=== PATIENT | male | born 1945 | race Caucasian/White ===

== ENCOUNTER → 2019-07-31 | Outpatient (CLI) | payer MEDICARE, BC ==
--- NOTE | 2019-07-31 10:23 | RADIOLOGY REPORT (SQ) ---
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 TECHNIQUE: CT scan of the chest performed using helical scanning technique with dynamic intravenous contrast injection. Images reviewed with lung, soft tissue and bone windows. Reconstructed coronal and sagittal MPR and MIP images reviewed. All images stored on PACS. All CT scanners at this facility use dose modulation, iterative reconstruction, and/or weight based d osing when appropriate to reduce radiation dose to as low as reasonably achievable (ALARA). [facility]: Dose Right [facility]: CareDose [facility]: Dose Right [facility]: Teradose 4D [facility]: [employer] CONTRAST TYPE AND DOSE: See abdomen RENAL FUNCTION: Creatinine 0.85 RADIATION DOSE: CT Rad equipment meets quality standard of care and radiation dose reduction techniq ues were employed. CTDIvol: 12.2 - 16.5 mGy. DLP: 1891 mGy-cm. . LIMITATIONS: None. FINDINGS: LUNGS AND PLEURA: No opacities, nodules, masses. No pneumothorax. No effusions. HILAR AND MEDIASTINAL STRUCTURES: No identified masses or abnormal nodes. HEART AND VASCULAR STRUCTURES: No aneurysm. No dissection. No central pulmonary embolus. Normal he art size. No pericardial effusion. Scattered coronary atherosclerosis. HARDWARE: None in the chest. UPPER ABDOMEN: See separate report of the CT of the abdomen. THYROID AND OTHER SOFT TISSUES: No masses. No adenopathy. BONES: No acute bony abnormality. No discrete lytic or blastic osseous lesions. OTHER: No other significant finding. IMPRESSION: No evidence of metastatic disease within the chest. No evidence of acute intrathoracic process. TECHNICAL DOCUMENTATION: JOB ID: [id number] Quality ID # [id number]: Final reports with documentation of one or more dose reduction techniques (e.g., Au tomated exposure control, adjustment of the mA and/or kV according to patient size, use of iterative reconstruction technique) 2010 [employer]- All Rights Reserved Reading location - IP/workstation name: [email or web address]
--- NOTE | 2019-07-31 10:33 | RADIOLOGY REPORT (SQ) ---
EXAM DESCRIPTION: CT ABD/PELVIS WITH IV ONLY COMPLETED DATE/TIME: 07/31/2019 9:52 am REASON FOR STUDY: PROSTATE CA (C61) C61 MALIGNANT NEOPLASM OF PROSTATE COMPARISON: None. TECHNIQUE: CT scan of the abdomen and pelvis performed using helical scanning technique with dynamic intravenous contrast injection. No oral contrast. Images reviewed with lung, soft tissue, and bone windows. Reconstructed coronal and sagittal MPR images reviewed. Delayed images for evaluation of the urinary system also acquired. All images stored on PACS. All CT scanners at this facility use dose modulation, iterative reconstruction, and/or weight based d osing when appropriate to reduce radiation dose to as low as reasonably achievable (ALARA). [facility]: Dose Right [facility]: CareDose [facility]: Dose Right [facility]: Teradose 4D [facility]: [employer] CONTRAST TYPE AND DOSE: contrast/concentration: Isovue 350.00 mg/ml; Total Contrast Delivered: 100.0 ml; Total Saline Delivered: 54.2 ml RENAL FUNCTION: Creatinine 0.85 RADIATION DOSE: . LIMITATIONS: None. FINDINGS: LOWER CHEST: No significant findings. No nodules or infiltrates. LIVER: Hepatic steatosis. Ill-defined area of increased attenuation within the peripheral right hepa tic lobe favored to represent area of focal fatty sparing or transient hepatic attenuation difference . No discrete hepatic lesions. No intrahepatic ductal dilation. SPLEEN: Normal size. No focal lesions. PANCREAS: No masses. No significant calcifications. No adjacent inflammation or peripancreatic fluid collections. Pancreatic duct not dilated. GALLBLADDER: No identified stones by CT criteria. No inflammatory changes to suggest cholecystitis. ADRENAL GLANDS: No significant masses or asymmetry. RIGHT KIDNEY AND URETER: No solid masses. 1.2 cm cyst. No significant calcifications. No hydrone phrosis or hydroureter. LEFT KIDNEY AND URETER: No solid masses. No significant calcifications. No hydronephrosis or hydr oureter. AORTA AND VESSELS: No aneurysm. No dissection. Renal arteries, SMA, celiac without stenosis. RETROPERITONEUM: No retroperitoneal adenopathy, hemorrhage or masses. BOWEL AND PERITONEAL CAVITY: No focal bowel wall thickening. No evidence of intestinal obstruction. Scattered colonic diverticula. Nonspecific mild mesenteric stranding within the left upper mid abdo men. APPENDIX: Not clearly visualized. PELVIS: Decompressed urinary bladder. Status post prostatectomy. No lymphadenopathy. No pelvic gina e fluid. ABDOMINAL WALL: No masses. No hernias. BONES: 12 mm sclerotic focus within the right ilium. Additional asymmetric sclerosis at the pubic sy mphysis, left greater than right. No other additional lytic or blastic osseous lesions. Grade 1 ant erolisthesis of L3 on L4 with associated bilateral pars defects. . Lower lumbar spondylosis and fac et arthropathy. OTHER: No other significant finding. IMPRESSION: 1. 12 mm sclerotic focus within the right ilium possibly bone island versus metastatic deposit. Additional asymmetric sclerosis at the pubic symphysis, likely degenerative. Recommend cor relation with same-day bone scan. No additional sclerotic lesions identified. 2. Hepatic steatosis with ill-defined area of increased density within the peripheral right hepatic lobe favored to represent focal fatty sparing or transient hepatic attenuation difference. No additi onal evidence of intra-abdominal/pelvic metastatic disease. TECHNICAL DOCUMENTATION: JOB ID: [id number] Quality ID # 436: Final reports with documentation of one or more dose reduction techniques (e.g., Au tomated exposure control, adjustment of the mA and/or kV according to patient size, use of iterative reconstruction technique) 2010 [employer]- All Rights Reserved Reading location - IP/workstation name: [email or web address]
--- NOTE | 2019-07-31 14:07 | RADIOLOGY REPORT (SQ) ---
EXAM DESCRIPTION: NM WHOLE BODY BONE SCAN COMPLETED DATE/TIME: 07/31/2019 1:50 pm REASON FOR STUDY: PROSTATE CA (C61 C61 MALIGNANT NEOPLASM OF PROSTATE COMPARISON: Same day CT RADIONUCLIDE AND DOSE: 21.5 millicuries Tc99m MDP. The route of agent administration: Intravenous. ADDITIONAL DRUGS AND DOSES: None. TECHNIQUE: Routine delayed images at 3 hour post radionuclide injection acquired of the bony skeleto n including anterior and posterior whole-body projections and additional focused images as needed. LIMITATIONS: None. FINDINGS: BONES: Areas of uptake at the knees and ankles most compatible with degenerative change. Otherwise normal visualization without areas of photopenia or increased bony uptake of radiopharmaceu tical. No areas of increased uptake to correspond to the sclerotic CT findings. KIDNEYS: Symmetric excretion without obstruction. OTHER: No other significant finding. IMPRESSION: No areas of abnormal uptake to suggest metastatic disease. COMMENT: Quality measure 147: Current bone scan is compared with any available plain radiographs, p rior bone scans, and CT/MRI. TECHNICAL DOCUMENTATION: JOB ID: [id number] [employer]- All Rights Reserved Reading location - IP/workstation name: [email or web address]
== END ==
LOC: RAD 08:59
PROVIDERS: ATTEND Internal Medicine
DX: C61 Malignant neoplasm of prostate (principal)
CPT/HCPCS: 78306; 71260; 74177; A9561; Q9969

== ENCOUNTER 2019-08-22 11:10 | Day surgery (SDC) | payer MEDICARE, BC ==
[~2019-08-22 11:10] MED LIST: CEFAZOLIN SODIUM 1 GM in DEXTROSE 5%-WATER 50 ML IV SCH; DEXTROSE 5%-LACTATED RINGERS 1,000 ML IV PRN
[2019-08-22 12:05] VITALS: BP 138/89
[2019-08-22 12:47] LABS: HEMATOCRIT 41.7 % (37.9-51.0); HEMOGLOBIN 14.6 g/dL (13.5-17.0); MEAN CORPUSCULAR HEMOGLOBIN 32.4 pg (27.0-33.4); MEAN CORPUSCULAR HGB CONC 34.9 g/dL (32.0-36.0); MEAN CORPUSCULAR VOLUME 93 fl (80-97); PLATELET COUNT 215 10^3/uL (150-450); RED CELL DISTRIBUTION WIDTH 13.3 % (11.5-14.0); WHITE BLOOD COUNT 6.5 10^3/uL (4.0-10.5)
--- NOTE | 2019-08-22 17:42 | EKG REPORT ---
SEVERITY:- BORDERLINE ECG - SINUS RHYTHM BORDERLINE T ABNORMALITIES, INFERIOR LEADS : Confirmed by: Ranulfo Carlos MD 22-Aug-2019 17:41:10
== END 2019-08-22 14:22 | disposition home or self-care (01) ==
LOC: OROUT 11:10
PROVIDERS: ATTEND Surgery
DX: K43.9 Ventral hernia without obstruction or gangrene (principal); R94.31 Abnormal electrocardiogram [ECG] [EKG]; Z53.29 Procedure and treatment not carried out because of patient's decision for other reasons
CPT/HCPCS: 36415; 85027; 93005; 93010; J0690; J7060

== ENCOUNTER 2019-08-29 07:08 | Day surgery (SDC) | payer MEDICARE, BC ==
[~2019-08-29 07:08] MED LIST changes: -CEFAZOLIN SODIUM 1 GM in DEXTROSE 5%-WATER 50 ML IV SCH; -DEXTROSE 5%-LACTATED RINGERS 1,000 ML IV PRN; +LACTATED RINGERS 1000 ML IV PRN; +LIDOCAINE 0.5% INJ-PF (5 MG/ML) 50 ML SDV SUBCUT PRN
[2019-08-29] MEDS ORDERED: HYDROMORPHONE HCL INJ/PF 2 MG/ML AMPULE ONE (09:13)
[2019-08-29] MEDS ORDERED: MIDAZOLAM 2 MG/2 ML INJ ONE (09:13)
[2019-08-29] MEDS ORDERED: FENTANYL CITRATE INJ/PF 100 MCG/2 ML AMPUL ONE (09:13)
[2019-08-29] MEDS ORDERED: PROPOFOL INJ 200 MG/20 ML VIAL IV ONE (09:14)
[2019-08-29] MEDS ORDERED: BUPIVACAINE INJ/PF LIPOSOME/PF 266 MG/20 ML SDV ONE (10:00)
[2019-08-29] MEDS ORDERED: BUPIVACAINE HCL 0.25 % INJ/PF (2.5 MG/1 ML) 30 ML VIAL ONE (10:00)
[2019-08-29] MEDS ORDERED: FENTANYL CITRATE INJ/PF 100 MCG/2 ML AMPUL IV PRN ×3 (10:27)
[2019-08-29] MEDS ORDERED: ONDANSETRON HCL INJ/PF 4 MG/2 ML SDV IV PRN (10:27)
[2019-08-29] MEDS ORDERED: PROMETHAZINE HCL INJ 25 MG/1 ML VIAL IV PRN (10:27)
[2019-08-29] MEDS ORDERED: OXYCODONE-ACETAMINOPHEN 5-325 MG TABLET PO PRN ×2 (10:27)
[2019-08-29] MEDS ORDERED: MORPHINE SULFATE 10 MG/ML INJ IV PRN (10:27)
[2019-08-29] MEDS ORDERED: MEPERIDINE HCL/PF INJ 25 MG/1 ML DISP.SYRIN IV PRN (10:27)
[2019-08-29] MEDS ORDERED: DIPHENHYDRAMINE HCL 50 MG/ML VIAL IV PRN (10:27)
[2019-08-29] MEDS ORDERED: CEFAZOLIN SODIUM 1 GM in DEXTROSE 5%-WATER 50 ML IV PRN (10:45)
--- NOTE | 2019-08-29 11:26 | Operative Report ---
Operative Report DATE OF SURGERY: 08/29/19 PREOPERATIVE DIAGNOSIS: Midline supraumbilical abdominal wall hernia with prola pse POSTOPERATIVE DIAGNOSIS: Same OPERATION: Open abdominal wall hernia repair with ventralex ST hernia patch, 6.4 centimeters diameter SURGEON: LEXI HO ANESTHESIA: GA TISSUE REMOVED OR ALTERED: Retroperitoneal fat disposed of COMPLICATIONS: None ESTIMATED BLOOD LOSS: Scant INTRAOPERATIVE FINDINGS: See below PROCEDURE: The patient was seen in the preop holding area, abdominal wall marked, then taken to the main operating room where general anesthesia was induced. Arms were abducted, abdomen exposed, prepped and draped with Betadine Surgical plan and surgical timeout were conducted. By palpation, the midline abdominal wall hernia was appreciated midway between the epigastric area and the umbilicus. It was partially reducible. The skin overlying the hernia in the midline was anesthetized with quarter percent Marcaine. Approximately 5 cm vertically oriented incision was made with a #10 blade. Subcutaneous tissue divided. The prolapsed fat was from the subcutaneous fat. I opened up the subcutaneous tissue caudad towards the previous laparoscopy scar in midline to ensure there was no hernia in this area and there was none. The fat overlying the intra-abdominal wall fascia was cleared with electrocautery. The prolapsing retroperitoneal fat was completely freed up, and from the fascial defect which was horizontally oriented, approximately 2 and half centimeters in diameter by 1-1/2 cm in vertical direction. Some of the prolapsed fat was removed with electrocautery and disposed of. Retroperitoneal fat was reduced into the retroperitoneal space. I then used my pinky finger to sweep the retroperitoneal tissue from the underlying surface of the midline fascia. There was no penetration of the peritoneal lining, so the nominal cavity was never entered. Once the lying surface of the fascia was freed up, I felt this was suitable for deployment of mesh into the subfascial position. We brought onto the field a Bard Ventralex ST 6.4 cm mesh. We now placed 0 PDS sutures in a loop like fashion through the fascia at the 12, 3, 6, and 9:00 positions. The sutures were placed through the reinforcement ring of the mesh. We now folded the mesh, like a taco, and placed it through the fascial defect, splayed it out and brought the sutures up snug. We carefully checked to ensure that the mesh was folded or kinked. It had a smooth configuration and we were satisfied with its placement. All 4-0 PDS sutures were secured with knots in the extrafascial position. I now closed the midline fascial defect horizontally with 3 [id number] 0 PDS sutures. Subcutaneous tissue was irrigated, we checked for bleeding there was none. Sponge and needle counts are correct. Abdominal wall closed in layers with 2-0 Vicryl and 3-0 Vicryl. Benzoin Steri-Strips applied. 20 cc of full-strength Exparel deployed into the subcutaneous tissues. The patient tolerated the procedure well, extubated, and taken recovery in stable condition.
--- NOTE | 2019-08-29 11:33 | Discharge Summary ---
Discharge Summary (SDC) - Discharge Final Diagnosis: Abdominal wall hernia status post open repair with mesh Date of Surgery: 08/29/19 Discharge Date: 08/29/19 Condition: Good Treatment or Instructions: No heavy lifting, pushing pulling or bending. No excessive activity. Prescription for Toradol on chart. Follow-up with [facility] in 1 to 2 weeks. Referrals: LAUREN VALLE ROPER OPERATOR [Primary Care Provider] - Discharge Diet: As Tolerated Discharge Activity: Activity As Tolerated Home Care Assistance: None Needed Report the Following to Your Physician Immediately: Shortness of Breath, Increase in Pain, Fever over 101 Degrees
[2019-08-29 13:29] VITALS: BP 150/80
[2019-08-29] MEDS ORDERED: DEXAMETHASONE SOD PHOSPHATE INJ 4 MG/1 ML VIAL ONE (15:09)
[2019-08-29] MEDS ORDERED: KETOROLAC TROMETHAMINE 60 MG/2 ML SDV ONE (15:09)
[2019-08-29] MEDS ORDERED: ONDANSETRON HCL INJ/PF 4 MG/2 ML SDV ONE (15:09)
[2019-08-29] MEDS ORDERED: SUCCINYLCHOLINE CHLORIDE INJ 200 MG/10 ML VIAL ONE (15:09)
== END 2019-08-29 13:00 | disposition home or self-care (01) ==
LOC: OROUT 07:08
PROVIDERS: ATTEND Surgery
DX: K43.9 Ventral hernia without obstruction or gangrene (principal); Z85.46 Personal history of malignant neoplasm of prostate; E78.00 Pure hypercholesterolemia, unspecified; E66.9 Obesity, unspecified; Z68.30 Body mass index [BMI] 30.0-30.9, adult
CPT/HCPCS: 49560; 49568; J2250; J0690; J1100; J1885; J1170; J0330; J2405; J7060; J2704; C9290; C1781; J3010

== ENCOUNTER → 2019-11-20 | Outpatient (CLI) | payer MEDICARE, BC ==
--- NOTE | 2019-11-20 19:05 | RADIOLOGY REPORT (SQ) ---
EXAM DESCRIPTION: MRI LUMBAR SPINE WITHOUT COMPLETED DATE/TIME: 11/20/2019 5:05 pm REASON FOR STUDY: C61 MALIGNANT NEOPLASM OF PROSTATE C61 MALIGNANT NEOPLASM OF PROSTATE COMPARISON: None. TECHNIQUE: Sagittal and Axial imaging includes T1, T2, STIR and gradient echo sequences. Coronal T2/ HASTE imaging. LIMITATIONS: None. FINDINGS: VISUALIZED UPPER ABDOMEN: Limited evaluation. No acute or suspicious findings suggested. SEGMENTATION: No transitional anatomy. The lowest well-developed disc space is labeled L5-S1. ALIGNMENT: Mild anterolisthesis of L3 on L4. VERTEBRAE: Intact. BONE MARROW: Normal. No marrow replacement or reactive changes. DISC SIGNAL: There is multilevel disc space narrowing, most prominently at L3-4. Decreased T2 signal intensity. POSTERIOR ELEMENTS: Generally intact. No pars defect evident. HARDWARE: None in the spine. CORD AND CONUS: Normal in size and signal intensity. Conus at the T12-L1 level. SOFT TISSUES: No aortic aneurysm seen. No bulky retroperitoneal adenopathy or mass. No paraspinal mas s or fluid. L1-L2: Mild concentric disc bulging with no central canal or foraminal stenosis. L2-L3: No significant spinal stenosis or exit foraminal stenosis. L3-L4: There is unroofing of the disc secondary to the anterolisthesis. There is no significant cent ral canal or foraminal stenosis. L4-L5: Shallow circumferential disc bulge. No central canal or foraminal stenosis. L5-S1: Broad-based disc bulge with midline prominence. No foraminal stenosis. LOWER THORACIC: Incompletely imaged. No stenosis seen. SACRUM: Visualized upper sacrum intact. OTHER: No other significant findings. IMPRESSION: There is mild anterolisthesis of L3 on L4. Relatively mild disc changes as described. The most significant disc bulge is at L5-S1. TECHNICAL DOCUMENTATION: JOB ID: [id number] 2010 [employer]- All Rights Reserved Reading location - IP/workstation name: [email or web address]
--- NOTE | 2019-11-20 19:15 | RADIOLOGY REPORT (SQ) ---
EXAM DESCRIPTION: MRI CERVICAL SPINE WITHOUT COMPLETED DATE/TIME: 11/20/2019 5:05 pm REASON FOR STUDY: C61 MALIGNANT NEOPLASM OF PROSTATE C61 MALIGNANT NEOPLASM OF PROSTATE COMPARISON: None. TECHNIQUE: Sagittal and Axial imaging includes T1, T2, STIR and gradient echo sequences. LIMITATIONS: None. FINDINGS: ALIGNMENT: Normal. VERTEBRAE: Intact. BONE MARROW: Normal. No marrow replacement or reactive changes. DISCS: Normal. No significant abnormal signal or loss of height. HARDWARE: None in the spine. CORD AND BASE OF BRAIN: Normal in size and signal intensity. SOFT TISSUES: No soft tissue masses. C1-C2: No significant spinal stenosis. C2-C3: No significant spinal stenosis or exit foraminal stenosis. C3-C4: No significant spinal stenosis or exit foraminal stenosis. C4-C5: There is a broad-based disc/osteophyte complex with uncovertebral osteophytes that result in m ild bilateral foraminal stenoses, left more than right. C5-C6: Broad-based disc/ osteophyte complex with mild right foraminal stenosis. C6-C7: Shallow, asymmetrical disc/ osteophyte complex more prominent left paracentral and left forami nal location. This results in mild left foraminal stenosis. C7-T1: No significant spinal stenosis or exit foraminal stenosis. UPPER THORACIC: Incompletely imaged. No significant spinal stenosis or exit foraminal stenosis. OTHER: No other significant finding. IMPRESSION: Cervical disc changes as described. The most significant findings appear to be at C4-5 where there are mild bilateral foraminal stenoses. TECHNICAL DOCUMENTATION: JOB ID: [id number] 2010 [employer]- All Rights Reserved Reading location - IP/workstation name: [email or web address]
--- NOTE | 2019-11-20 19:20 | RADIOLOGY REPORT (SQ) ---
EXAM DESCRIPTION: MRI THORACIC SPINE WITHOUT COMPLETED DATE/TIME: 11/20/2019 5:05 pm REASON FOR STUDY: C61 MALIGNANT NEOPLASM OF PROSTATE C61 MALIGNANT NEOPLASM OF PROSTATE COMPARISON: None. TECHNIQUE: Sagittal and Axial imaging includes T1, T2, STIR and gradient echo sequences. LIMITATIONS: None. FINDINGS: LOCALIZER: No worrisome findings. ALIGNMENT: Normal. VERTEBRAE: No superior endplate compression changes at L1. BONE MARROW: Mild marrow edema in the superior endplate of the L1 vertebra. HARDWARE: None in the spine. CORD: Normal in size and signal intensity. SOFT TISSUES: No soft tissue masses. THORACIC DISCS T1-T12: No significant spinal stenosis or exit foraminal stenosis. LOWER CERVICAL: Incompletely imaged. No significant spinal stenosis or exit foraminal stenosis. UPPER LUMBAR: Incompletely imaged. No significant spinal stenosis or exit foraminal stenosis. OTHER: No other significant finding. IMPRESSION: Mild subacute L1 compression changes. No significant findings in the thoracic spine. TECHNICAL DOCUMENTATION: JOB ID: [id number] 2010 [employer]- All Rights Reserved Reading location - IP/workstation name: [email or web address]
== END ==
LOC: RAD 15:17
PROVIDERS: ATTEND Internal Medicine
DX: C61 Malignant neoplasm of prostate (principal); M25.78 Osteophyte, vertebrae; M48.02 Spinal stenosis, cervical region; M51.87 Other intervertebral disc disorders, lumbosacral region
CPT/HCPCS: 72141; 72146; 72148

== ENCOUNTER → 2020-09-03 | Outpatient (CLI) | payer MEDICARE, BC ==
[~2020-09-03] MED LIST changes: +COVID-19 VACCINE (PFIZER)/PF 30 MCG/0.3 ML VIAL IM ONE; +EPINEPHRINE INJ/PF 1 MG/1 ML AMPULE IM PRN; -LACTATED RINGERS 1000 ML IV PRN; -LIDOCAINE 0.5% INJ-PF (5 MG/ML) 50 ML SDV SUBCUT PRN
== END ==
LOC: EMPHEALTH 10:07
PROVIDERS: ATTEND Internal Medicine
DX: Z23 Encounter for immunization (principal)
CPT/HCPCS: 91300

== ENCOUNTER → 2020-09-24 | Outpatient (CLI) | payer MEDICARE, BC | LOC: EMPHEALTH 09:04 | PROVIDERS: ATTEND Internal Medicine | DX: Z23 Encounter for immunization (principal) | CPT/HCPCS: 91300 ==